=== PATIENT | male | born 1965 | race Two or more races ===

== ENCOUNTER 2024-07-13 11:55 | Emergency (ER) | payer MEDICAID ==
[~2024-07-13] VITALS: Ht 177.8 cm; Wt 90.0 kg
[2024-07-13 12:17] VITALS: O2SAT 98
[2024-07-13 14:57] LABS: CHLORIDE 104 mEq/L (98-107); POTASSIUM 4.3 mEq/L (3.5-5.1); SODIUM 138 mEq/L (136-145)
[2024-07-13 14:58] LABS: CARBON DIOXIDE 26 mEq/L (21-32)
[2024-07-13 15:03] LABS: CREATININE 0.9 mg/dL (0.6-1.3); GLUCOSE 105 mg/dL (70-105); UREA NITROGEN BLOOD 7 mg/dL (9-23)
[2024-07-13 15:05] LABS: ALANINE AMINOTRANSFERASE 33 IU/L (10-49); ALBUMIN 4.7 g/dL (3.2-4.8); ASPARTATE AMINOTRANSFERASE 23 IU/L (<34)
[2024-07-13 15:06] LABS: BILIRUBIN DIRECT 0.2 mg/dL (<=3.0); BILIRUBIN TOTAL 0.8 mg/dL (0.1-1.0); PROTEIN TOTAL 8.2 g/dL (6.0-8.3)
[2024-07-13 15:07] LABS: BASOPHILS % 1.5 % (0.0-2.0); EOSINOPHILS % 1.7 % (0.0-5.0); HEMATOCRIT. 53.1 % (42.0-52.0); HEMOGLOBIN. 17.6 g/dL (14.0-18.0); MEAN CORPUSCULAR HEMOGLOBIN 29.3 pg (28.0-32.0); MEAN CORPUSCULAR HGB CONC 33.2 g/dL (31.0-37.0); MEAN CORPUSCULAR VOLUME 88.2 fL (80.0-94.0); MEAN PLATELET VOLUME 8.7 fl (7.4-10.4); MONOCYTES % 9.4 % (2.0-8.0); NEUTROPHILS % 42.4 % (40.0-76.0); PLATELET 233 x1000/uL (130-400); RED BLOOD CELL COUNT 6.02 mill/uL (4.7-6.1); RED CELL DISTRIBUTION WIDTH 14.1 % (11.6-14.6); WHITE BLOOD COUNT 3.6 x1000/uL (4.5-11.0)
[2024-07-13 15:10] LABS: ETHANOL BLOOD < 10 mg/dL (<10); TROPONIN I HIGH SENSITIVITY < 4 ng/L (3.0-53)
[2024-07-13] MEDS: MORPHINE SULFATE 4 MG/ML INJ (FOR IV/IM USE) IV ONE (17:13)
[2024-07-13] MEDS: KETOROLAC 30MG/ML VIAL IM ONE (17:46)
[2024-07-13 17:50] VITALS: BP 138/87; PULSE 78; RESP 18; TEMP 36.61404; O2SAT 98
== END 2024-07-13 18:24 | disposition home or self-care (01) ==
LOC: ER 11:55
DX: M25.531 Pain in right wrist (principal); I10 Essential (primary) hypertension; V43.52XA Car driver injured in collision with other type car in traffic accident, initial encounter; Y93.89 Activity, other specified; Y92.89 Other specified places as the place of occurrence of the external cause; Y99.8 Other external cause status
CPT/HCPCS: 80076; 80048; 80320; 83880; 83690; 85025; 84484; 36415; 73110; 96372; 99284; J1885; G0480